=== PATIENT | female | born 1975 | race Caucasian/White ===

== ENCOUNTER 2016-05-25 14:30 | Emergency (ER) | payer OTHER ==
[~2016-05-25] VITALS: Ht 152.4 cm; Wt 128.0 kg
[2016-05-25 14:33] VITALS: BP 136/88; PULSE 86; RESP 16; O2SAT 100
--- NOTE | 2016-05-25 15:23 | ED.REPORT ---
HPI-Chest Pain Under 40 Date of Service May 25, 2016 ED Provider: Dr. Stanley A 40 year old female with a history of heartburn, who is currently going through a miscarriage, presents to the ED complaining of chest pain onset yesterday after the patient finished work. Pain is described as squeezing and not dull. The pain radiates up into the patient's chest, being focused in the middle. Pain radiates down her left arm. Her whole arm is aching and cramping. Pain radiates into her left hand with finger numbness. Associated symptoms include chest and abdominal pain with inspiration, and back pain. She has had minor relief with moving around, but she finds no relief with walking, crouching , back massage, or taking a hot bath. She took Tylenol, Codeine, and heartburn pill with no relief. She reports that pain is much worse than past episodes of severe heartburn. She has had shallow breathing, but thinks this may be related to her being out of shape. She denies any leg swelling or cough. She is unsure if she has had any cold sweats. The patient had an episode of similar chest pain approximately one week ago accompanied by nausea, vomiting, and difficultly sleeping. She also reports intermittent vaginal bleeding and abdominal pain onset one month ago, related to miscarriage, but she denies any episodes of major bleeding. She thinks that chest pain may be related to this recent abdominal pain. She is accompanied by her supportive . At recheck, the patient reports that Dr. Graf had concern for ectopic. Patient reports that her HCG numbers were low, spiked, but have since been steadily dropping. At a recent check-up, she was at 180. Patient reports that her abdomen feels bloated and painful, and has been like this for the whole miscarriage with pain being exacerbated with urination. She reports feeling bloated and crappy for the last week. She has also had decreased appetite. Nursing Notes Stated Complaint: POSS MISCARRIAGE,ABD PAIN,CHEST PAIN Chief Complaint: Chest Pain Nursing Notes Reviewed: Yes Allergies: Coded Allergies: codeine (Verified Adverse Reaction, Intermediate, 05/25/16) General Time Seen by MD: 15:23 Chief Complaint Chest pain Hx Obtained From: Patient Arrived By: Walk-in Sudden in Onset?: No Onset Occurred: Yesterday Symptom Duration: Since onset Severity: Current: Moderate Severity: Maximum: Moderate Recent Healthcare: No recent doctor visit Similar Sx Previous: No Past Medical History Past Medical History Notes: Dr. Bri Whaley, obstetrics and gynecology. Dr. Whaley has been monitoring patient's miscarriage. Past Medical History Miscarriage. Severe heartburn with pain that has traveled into patient's head. Thyroid disease, treated with medication. ED visit in the past for leg cramping after [place] flight from [place]. Allergic to Codeine, will cause vomiting. She denies any abnormal blood clotting. Past Surgical History Denies Family History Heart disease on father's side. Father had open heart surgery at age 59. Smoking History Former Smoker Social History Approximately 1 weeka go, the patient got back from [place] vacation. She flew 4 hours, non-stop each way. Alcohol Use: 1-3 per day Ambulatory Status Independent Review of Systems Review of Systems Note: Loss of appetite. Respiratory: Reports: Shortness of breath (shallow breathing, may be related to patient's fitness level), Denies: Non-productive cough Cardiovascular: Reports: Chest pain Musculoskeletal: Reports: Back pain, Extremity pain (left arm), Denies: Extremity swelling (denies leg swelling) Neurologic: Reports: Numbness (fingers of left hand) Complete sys rev & neg: except as marked. Female: Reports: Vaginal bleeding - abnl Physical Exam Physical Exam Notes: Initial Vital Signs Vital Signs (First) Date Time Temp Pulse Resp B/P Pulse Ox O2 Delivery O2 Flow Rate FiO2 05/25/16 14:33 36.5 86 16 136/88 100 Room Air Initial VS: Reviewed General/Constitutional: Awake, Alert Anxious Respiratory / Chest: Atraumatic, Breath sounds NL, Breath sounds = bilat, No respiratory distress, No rales, No rhonchi, No wheezing Cardiovascular: Heart rate NL, Regular rhythm, Heart sounds NL, No gallop, No murmurs, No rubs Abdomen: No guarding, No rebound Skin: Warm, Dry Neurologic: Oriented X3, Speech NL, No sensory deficits Head / Eyes: Atraumatic, Normocephalic, PERRL, EOMI ENT: Atraumatic, Airway patent, Mucous membranes moist Upper Extremity / MS: No swelling, No edema Interpretation & Diagnostics Lab Results Interpretation Result Diagram: 05/25/16 1537 05/25/16 1537 Test 05/25/16 15:15 05/25/16 15:37 Hold Urine Received (Received) White Blood Count 9.6th/mm3 (3.8-10.1) Red Blood Count 4.21mil/mm3 (3.90-5.20) Hemoglobin 11.9g/dL (12.0-15.6) Hematocrit 36.3% (35.0-46.0) Mean Corpuscular Volume 86.2fL (81-100) Mean Corpuscular Hemoglobin 28.3pg (27.0-35.0) Mean Corpuscular Hemoglobin Concent 32.8% (32.0-37.0) Red Cell Distribution Width 13.1% (12.3-15.4) Platelet Count 325bil/L (150-400) Neutrophils (%) (Auto) 69.2% (40-74) Lymphocytes (%) (Auto) 20.6% (14-46) Monocytes (%) (Auto) 7.5% (4-12) Eosinophils (%) (Auto) 1.9% (0-5) Basophils (%) (Auto) 0.5% (0-3) D-Dimer 4.33mg/L FEU (<0.50) Sodium Level 138mEq/L (134-144) Potassium Level 4.1mEq/L (3.5-5.2) Chloride Level 100mEq/L (97-108) Carbon Dioxide Level 23mmol/L (18-29) Blood Urea Nitrogen 11mg/dL (6-20) Creatinine 0.79mg/dL (0.57-1.00) Estimat Glomerular Filtration Rate 116mL/min (>59) Glucose Level 105mg/dL (60-99) Calcium Level 9.9mg/dL (8.5-10.1) Magnesium Level 2.1mg/dL (1.6-2.6) Total Bilirubin 0.5mg/dL (0.0-1.2) Aspartate Amino Transf (AST/SGOT) 16U/L (0-50) Alanine Aminotransferase (ALT/SGPT) 11U/L (0-32) Alkaline Phosphatase 34U/L (25-150) Troponin T < 0.010ug/L (0.0-0.011) Pro-B-Type Natriuretic Peptide 146.8pg/mL (0-130) Total Protein 7.9g/dL (6.4-8.4) Albumin 4.6g/dL (3.4-5.0) HCG Beta Subunit 97.42mIU/mL Hold Pacheco Top Tube Received (Received) Lab Results Interpretation: PROCEDURE: CT ANGIO CHEST PULMONARY EMBOLISM ([id number]) IMPRESSION: 1. No acute pulmonary embolus. 2. Intermediate density perihepatic fluid. The significance of this finding is unclear; however hemoperitoneum cannot be excluded. This finding was discussed with Dr. Stanley at 6:48 PM on 05/25/16. Approved by: Pauly Kline M.D. on 05/25/2016 at 19:11 ECG Interpretation ECG Interpretation: Rate is 70. Sinus rhythm. Time: 15:11 Interpreted by: ED physician X-Ray Chest Interpretation Chest Xray Interpretation: IMPRESSION: No acute cardiopulmonary findings. Dictated by: Pauly Kline M.D. on 05/25/2016 at 16:56 Approved by: Pauly Kline M.D. on 05/25/2016 at 16:57 Interpretation / Wet Read by: Interpret - Radiologist CT Abd / Pelvis Interpretation IMPRESSION: 1. No evidence of intermediate density perihepatic fluid as suspected on the comparison CT of the chest earlier today. 2. New cystic lesion likely within the left ovary when compared with the prior ultrasound dated 05/01/16. Followup pelvic ultrasound recommended to further characterize this finding. 3. Right ovarian cystic lesions similar to the prior MRI and pelvic ultrasound. 4. No findings to suggest hemoperitoneum. 5. Normal appendix. Dictated by: Pauly Kline M.D. on 05/25/2016 at 19:35 Approved by: Pauly Kline M.D. on 05/25/2016 at 19:45 Interpretation / Wet Read by: Interpret - Radiologist Re-Eval/Medical Decision Med Decision/Clinical Course Patient presents today with left-sided chest pain. ECG is reassuring, evaluation is otherwise reassuring with the exception of an elevated d-dimer. CT angiogram of the chest ruled out pulmonary embolism however there is concern on the angiogram that she has free fluid in her abdomen. This was discussed with Dr. Zuluaga. Based on this and the history of recent miscarriage versus possible resolving ectopic, abdominal imaging was obtained. I should note that the patient reports a sense of fullness in her abdomen but no increase in abdominal pain no increase in vaginal bleeding and no syncope or presyncope. On CT imaging of the abdomen there is no free fluid identified. The patient's quantitative hCG is dropping. She is discharged home with instructions to use ibuprofen as needed for pain, also provided with a prepack of Vicodin. Recommended she follow up with her cottonseed meat presser next week. Source of Hx: Old records Re-Evaluation/Progress #1: Time of Eval: 18:58 Re-Evaluation/Progress Note: Rechecked patient. Explained no pulmonary embolism on test results. She reports that Dr. Graf had concern for ectopic. HCG numbers were low, spiked, but have since beed steadily dropping. At recent check-up, she was at 180. Patient reports that her abdomen feels bloated and painful, and has been like this for the whole time since miscarriage onset. Exacerbated with urination. She reports feeling bloated and crappy for the last week. She has also had decreased appetite. Explained plan to do pelvis CT. Patient understands and agrees with the plan . All questions addressed. Re-Evaluation/Progress #2: Time of Eval: 20:22 Re-Evaluation/Progress Note: Rechecked patient, explained test results, diagnosis, and plan for discharge. Patient understands and agrees with the plan. All questions addressed. Counseled Regarding: Diagnosis, Lab results, Need for follow-up, When/why to return to ED Discharge & Departure Primary Impression: Chest pain Chest pain type: unspecified Qualified Code: R07.9 - Chest pain, unspecified Disposition: Home Discharge Condition All VS Reviewed: Yes Condition: Stable Additional Instructions: Emergency department evaluation today included interview, examination, review of past records, labs, ECG chest x-ray CTs of the chest abdomen and pelvis. We considered cardiac problems, pulmonary embolism, pneumonia, intra-abdominal fluid/blood as causes for chest pain. These are found on evaluation. It is felt safe for you to return home, may use ibuprofen 600 mg up to 3 times a day as needed for pain. May also use hydrocodone/APAP one to 2 every 4-6 hours as needed for pain, we provided 10 for home use. Follow-up with your cottonseed meat presser next week. Return to emergency department for increasing pain, fevers, increasing shortness of breath. Referrals: Chlesea Krishnamurthy (PCP) Bri Whaley MD Attestation Portions of this note were transcribed by Aron Murphy. I, Dr. Stanley personally performed the history, physical exam and medical decision-making; I reviewed and confirmed the accuracy of the information in the transcribed note. Signed by: Ayden Connors, 05/25/2016, [id number]. copies to: Chelsea Krishnamurthy; Bri Whaley MD, Donald L MD May 25, 2016 15:23 Aron Murphy May 25, 2016 15:33
[2016-05-25 15:48] LABS: BASOPHILS % (AUTO) 0.5 % (0-3); EOSINOPHILS % (AUTO) 1.9 % (0-5); MONOCYTES % (AUTO) 7.5 % (4-12); Mean Corpuscular Hemoglobin 28.3 pg (27.0-35.0); Mean Corpuscular Volume 86.2 fL (81-100); NEUTROPHILS % (AUTO) 69.2 % (40-74); Platelet Count 325 bil/L (150-400)
[2016-05-25 16:10] LABS: Magnesium 2.1 mg/dL (1.6-2.6)
[2016-05-25 16:11] LABS: TROPONIN T < 0.010 ug/L (0.0-0.011)
[2016-05-25 16:54] VITALS: BP 127/70; PULSE 77; RESP 18; O2SAT 100
--- NOTE | 2016-05-25 16:58 | DRSVH ---
PROCEDURE: X-RAY CHEST ONE VIEW, PORTABLE ([id number]) INDICATIONS: chest pain TECHNIQUE: One view of the chest was acquired. COMPARISON: None. FINDINGS: Surgical changes and devices: None. Lungs and pleura: No pleural effusions or pneumothorax. Lungs are clear. Mediastinum: Mediastinal contours appear normal. Heart size is normal. Bones and chest wall: No suspicious bony lesions. Overlying soft tissues appear unremarkable. IMPRESSION: No acute cardiopulmonary findings. Dictated by: Pauly Kline M.D. on 05/25/2016 at 16:56 Approved by: Pauly Kline M.D. on 05/25/2016 at 16:57
[2016-05-25] MEDS ORDERED: HYDROmorphone 0.5 mg/0.5 mL iSecure Syringe IVPUSH PRN (18:10)
[2016-05-25] MEDS ORDERED: 0.9% Sodium Chloride 1,000 ML IV ONE (18:10)
[2016-05-25] MEDS ORDERED: Ondansetron 2 mg/mL 2 mL Inj ONE (18:38)
--- NOTE | 2016-05-25 19:12 | DRSVH ---
PROCEDURE: CT ANGIO CHEST PULMONARY EMBOLISM ([id number]) INDICATIONS: elevated dimer and chest pain TECHNIQUE: After the administration of intravenous contrast, 2 mm thick sections acquired from the pulmonary api noe to the posterior costophrenic angles. 3-dimensional maximum intensity projection (MIP) coronal a nd sagittal reformats were then acquired through the thorax. For radiation dose reduction, the follo wing was used: automated exposure control, adjustment of mA and/or kV according to patient size. COMPARISON: None. FINDINGS: Image quality: Excellent. Pulmonary arteries: Pulmonary arteries are normal in size, and demonstrate no intraluminal filling d efects to suggest central pulmonary embolism. Lungs and pleura: Lungs are clear. No pleural effusions or pneumothorax. Central and peripheral ai rways are patent. Mediastinum: Heart size is normal, without pericardial effusion. No mediastinal or hilar adenopathy . Thoracic aorta is normal in caliber and enhancement. Esophagus is normal in caliber, without hiat al hernia. Bones and chest wall: No suspicious bony lesions. Ribs and thoracic spine appear intact throughout. Thyroid gland is unremarkable. No axillary or supraclavicular adenopathy. Abdomen: There is intermediate density perihepatic fluid which is only partially characterized on th is limited view of the abdomen. Visualized upper abdominal solid organs appear normal in the early ar terial phase of enhancement. IMPRESSION: 1. No acute pulmonary embolus. 2. Intermediate density perihepatic fluid. The significance of this finding is unclear; however hemop eritoneum cannot be excluded. This finding was discussed with Dr. Stanley at 6:48 PM on 05/25/16. Approved by: Pauly Kline M.D. on 05/25/2016 at 19:11
--- NOTE | 2016-05-25 19:47 | DRSVH ---
PROCEDURE: CT ABDOMEN AND PELVIS WITHOUT CONTRAST ([id number]) INDICATIONS: abdominal fluid TECHNIQUE: Noncontrast 5 mm thick sections acquired from the diaphragms to the symphysis. 5 mm coronal and sagi ttal reformats were then performed. For radiation dose reduction, the following was used: automated exposure control, adjustment of mA and/or kV according to patient size. COMPARISON: [facility], CT, CT ANGIO CHEST PE, 05/25/2016, 18:28. [facility] Ultrasound, US, US PELVIC+TRANSVAG, 05/01/2016, 15:21. [facility], MR, MR PELVIS W&WO C ON, 02/29/2016, 7:14. FINDINGS: Image quality: Excellent. ABDOMEN: Lung bases: Lung bases are clear. Heart size is normal. Solid organs: Liver and spleen are normal in size. Of note, there is no definite intermediate densi ty perihepatic free fluid as speculated on the comparison chest CT from earlier today. Gallbladder is unremarkable. Pancreas is normal in contours. No adrenal nodules. Kidneys are normal in size, wit hout hydronephrosis or nephrolithiasis. Excreted contrast is present within the bilateral renal ruel ecting systems. Peritoneum and bowel: Unenhanced bowel loops demonstrate normal wall thickness and caliber. The denis endix is thin walled and gas filled. No free fluid or air. Nodes and vessels: No retroperitoneal or mesenteric adenopathy by size criteria. Aorta and inferior vena cava are normal in caliber. Miscellaneous: No ventral hernias. PELVIS: Genitourinary: The bladder is contrast-filled. The uterus is enlarged. There are 3 discrete cystic le sions within the expected location of the right ovary and and one 3.4 cm cystic lesion in the expecte d region of the left ovary. The left ovarian cyst is new when compared with the MRI dated 02/29/16 and the ultrasound dated 05/01/16. Soft tissue discrimination is limited given the lack of intravenous co ntrast. Miscellaneous: No inguinal hernias or adenopathy. Bones: No suspicious bony lesions. No vertebral body compression fractures. IMPRESSION: 1. No evidence of intermediate density perihepatic fluid as suspected on the comparison CT of the [facility] st earlier today. 2. New cystic lesion likely within the left ovary when compared with the prior ultrasound dated . Followup pelvic ultrasound recommended to further characterize this finding. 3. Right ovarian cystic lesions similar to the prior MRI and pelvic ultrasound. 4. No findings to suggest hemoperitoneum. 5. Normal appendix. Dictated by: Pauly Kline M.D. on 05/25/2016 at 19:35 Approved by: Pauly Kline M.D. on 05/25/2016 at 19:45
[2016-05-25 19:56] VITALS: BP 123/71; PULSE 74; RESP 18; O2SAT 100
[2016-05-25] MEDS ORDERED: _HYDROcodone/APAP 5-325 mg Tablet PO PRN (20:15)
[2016-05-25 20:42] VITALS: BP 110/69; PULSE 66; RESP 16; O2SAT 100
== END 2016-05-25 21:12 | disposition home or self-care (01) ==
LOC: SED 14:30
DX: R07.9 Chest pain, unspecified (principal); Z87.891 Personal history of nicotine dependence
CPT/HCPCS: 36415; 71010; 71275; 74176; 80053; 81025; 83735; 83880; 84484; 84702; 85025; 85378; 93005; 96361; 96374; 96375; 99285; J1170; J1885; J2405; J7030; Q9967